=== PATIENT | female | born 1950 | race Caucasian/White ===

== ENCOUNTER 2024-10-13 16:45 | Outpatient (REF) | payer SELFPAY ==
--- OUTSIDE RECORDS SUMMARY | 2024-10-14 16:48 | XMS_ITS | Encounter Summary ---
Author Organization [facility] Address [address] [place] [address] Phone Care Team Providers Care Filters Assembler Name Role Phone Maranda Mesa MD Primary Care Provider +1- [phone] Encounter Details Date Type Department Care Team (Late st Contact Info) Description 07/22/2023 Documentation Only [facility] [place], [address] [place] [address] Mary Ingram [address] [place] [address] Social History Tobacco Use Types Packs/Day Years Used Date Smoking Tobacco: Never Assessed Comments Unknown Sex and Gender Information Value Date Recorded Sex Assigned at Not on file Legal Sex Female 4:32 PM EST Gender Identity Not on file Sexual Orientation Not on file documented as of this encounter Plan of Treatment Not on file documented as of this encounter Visit Diagnoses Not on filedocumented in this encounter Care Teams Filters Assembler Relationship Specialty Start Date End Date Maranda Mesa MD [address] [place] [address] PCP - General Family Medicine 03/03/23 documented as of this encounter
--- OUTSIDE RECORDS SUMMARY | 2024-10-14 16:48 | XMS_ITS | Encounter Summary ---
Author Organization [facility] Address [address] [place] [address] Phone Care Team Providers Care Manager Integrity Name Role Phone Maranda Mesa MD Primary Care Provider +1- [phone] Encounter Details Date Type Department Care Team (Late st Contact Info) Description 09/13/2024 Documentation Only [facility] [place], [address] [place] [address] Mary Ingram [address] [place] [address] Social History Tobacco Use Types [...] on filedocumented in this encounter Care Teams Manager Integrity Relationship Specialty Start Date End Date Maranda Mesa MD [address] [place] [address] PCP - General Family Medicine 03/03/23 documented as of this encounter
--- OUTSIDE RECORDS SUMMARY | 2024-10-14 16:48 | XMS_ITS | Encounter Summary ---
Author Organization [facility] Address [address] [place] [address] Phone Care Team Providers Care Client Relationship Manager Name Role Phone Maranda Mesa MD Primary Care Provider +1- [phone] Encounter Details Date Type Department Care Team (Late st Contact Info) Description 07/15/2023 Documentation Only [facility] [place], [address] [place] [address] Vanita Mayorga [address] [place] [address] Social History Tobacco Use Types [...] on filedocumented in this encounter Care Teams Client Relationship Manager Relationship Specialty Start Date End Date Maranda Mesa MD [address] [place] [address] PCP - General Family Medicine 03/03/23 documented as of this encounter
--- OUTSIDE RECORDS SUMMARY | 2024-10-14 16:48 | XMS_ITS | Encounter Summary ---
Author Organization [facility] Address [address] [place] [address] Phone Care Team Providers Care Mumps Developer Name Role Phone Maranda Mesa MD Primary Care Provider +1- [phone] Encounter Details Date Type Department Care Team (Late st Contact Info) Description 07/22/2023 Documentation Only [facility] [place], [address] [place] [address] Mary Ingram [address] [place] [address] Social History Tobacco Use Types [...] on filedocumented in this encounter Care Teams Mumps Developer Relationship Specialty Start Date End Date Maranda Mesa MD [address] [place] [address] PCP - General Family Medicine 03/03/23 documented as of this encounter
--- OUTSIDE RECORDS SUMMARY | 2024-10-14 16:48 | XMS_ITS | Encounter Summary ---
Author Organization [facility] Address [address] [place] [address] Phone Care Team Providers Care Single Corner Cutter Name Role Phone Maranda Mesa MD Primary Care Provider +1- [phone] Encounter Details Date Type Department Care Team (Late st Contact Info) Description 07/15/2023 Documentation Only [facility] [place], [address] [place] [address] Vanita Mayorga [address] [place] [address] Social History Tobacco Use Types [...] on filedocumented in this encounter Care Teams Single Corner Cutter Relationship Specialty Start Date End Date Maranda Mesa MD [address] [place] [address] PCP - General Family Medicine 03/03/23 documented as of this encounter
--- OUTSIDE RECORDS SUMMARY | 2024-10-14 16:48 | XMS_ITS | Clinical Summary ---
Author Organization [facility], Address [address] [address] Phone Care Team Providers Care Resource Paraprofessional Name Role Phone Maranda Mesa MD Primary Care Provider +1- [phone] Allergies Active Allergy Reactions Criticality Noted Date Comments Codeine Nausea,Other (see comments) Medium 04/11/2021 Other Reaction(s): Not available Diphenhydramine-Acetami nophen Medium 04/11/2021 Other Reaction(s): Hepatic reactions, Not available Escitalopram Medium 04/11/2021 Other Reaction(s): Cutaneous reactions, Not available Isosorbide Nitrate Medium 04/11/2021 Other Reaction(s): Nausea, Not available Lisinopril Other (see comments) 07/14/2023 Statins Medium 04/11/2021 Other Reaction(s): Nausea Sulfadiazine Rash Medium 04/11/2021 Other Reaction(s): Nausea Sulfamethoxazole-Trimet hoprim Rash Low 07/14/2023 Medications amLODIPine (NORVASC) 10 MG tablet Take 10 mg by mouth 1 (one) time each day Active Eliquis 5 MG tablet Take 5 mg by mouth in the morning and 5 mg in the evening. Active carvedilol (COREG) 12.5 MG tablet Take 12.5 mg by mouth 2 Active coenzyme Q-10 100 MG capsule Take 100 mg by mouth 2 Active Docusate Sodium (DSS) 100 MG capsule Take 100 mg by mouth 2 Active ezetimibe (ZETIA) 10 MG tablet Take 10 mg by mouth 1 (one) time each day 4 Active PROzac 20 MG capsule Take 20 mg by mouth 2 Active losartan (COZAAR) 25 MG tablet Take 25 mg by mouth 1 (one) time each day 4 Active pregabalin (LYRICA) 50 MG capsule TAKE 1 CAPSULE BY MOUTH UP TO THREE TIMES DAILY NEEDED FOR NERVE PAIN 4 Active rOPINIRole (REQUIP) 0.5 MG tablet Take 0.5 mg by mouth 1 (one) time each day Active nitroglycerin (NITROSTAT) 0.[address] 0.4 mg under the tongue 1 Active Empagliflozin (Jardiance) 10 MG tablet Take 10 mg by mouth 1 (one) time each day with breakfast 90 tablet 3 4 01/05/20 25 Active Continuous Glucose Sensor (FreeStyle Rios 2 Sensor) [facility] [place] AND CHANGE EVERY 14 DAYS 4 Active furosemide (LASIX) 20 MG tablet Take 20 mg by mouth in the morning and 20 mg in the evening. 4 Active Insulin Aspart FlexPen 100 UNIT/ML solution pen-injector 4 Active Basaglar KwikPen 100 UNIT/ML injection 4 Active Active Problems Problem Noted Date Diagnosed Date Hyperkalemia 07/14/2023 Essential hypertension 07/14/2023 Stage 3b chronic kidney disease 07/14/2023 Encounters Date Type Department Care Team Description 09/13/2024 Documentation Only [facility] [address] [place] [address] Mary Ingram 09/13/2024 Documentation Only [facility] [address] [place] [place] [address] Mary Ingram 07/21/2024 Refill [facility] [address] Sharyn ANTUNEZ [address] [place] [address] Gerson Dill MD from Last 3 Months Family History Medical History Relation Comments Heart disease Father ND Diabetes Mother Heart disease Mother ND Diabetes Sibling Brother Relation Status Comments Father Mother Sibling Social History Tobacco Use Types Packs/Day Years Used Date Smoking Tobacco: Never Assessed Comments Unknown Sex and Gender Information Value Date Recorded Sex Assigned at Not on file Legal Sex Female 4:32 PM EST Gender Identity Not on file Sexual Orientation Not on file Last Filed Vital Signs Vital Sign Reading Time Taken Comments Blood Pressure 125/62 04/26/2018 12:00 PM EDT Pulse 72 04/26/2018 12:00 PM EDT Temperature 36.7 C (98 F) 04/26/2018 12:00 PM EDT Respiratory Rate 14 04/26/2018 12:0 0 PM EDT Oxygen Saturation - - Inhaled Oxygen Concentration - - Weight 81.6 kg (179 lb 12.8 oz) 019 12:00 PM EDT Height 162.6 cm (5' 4 ) 04/26/2018 12:0 0 PM EDT Body Mass Index 30.86 04/26/2018 12:00 PM EDT Plan of Treatment Health Maintenance Due Date Last Done Comments Pneumococcal Vaccine: 50+ Ye ars (1 of 2 - PCV) 02/05/1969 Diabetes: Hemoglobin A1C 07/14/2023 Diabetes: Ophthalmology Exam 07/14/2023 Diabetes: Pedal Pulse Checked 07/14/2023 Diabetes: Sensory Foot Exam 07/14/2023 Diabetes: Visual Foot Exam 07/14/2023 Influenza Vaccine (#1) 2024 10/25/2022 Hepatitis B Vaccine Aged Out No longe r eligible based on patient's age to complete this topic Insurance Medicare [facility] Care Teams Resource Paraprofessional Relationship Specialty Start Date End Date Maranda Mesa MD [address] [place] [id number] PCP - General Family Medicine 03/03/23
--- OUTSIDE RECORDS SUMMARY | 2024-10-14 16:48 | XMS_ITS | Encounter Summary ---
Author Organization [facility] Address [address] [place] [address] Phone Care Team Providers Care Ore Digger Name Role Phone Maranda Mesa MD Primary Care Provider +1- [phone] Encounter Details Date Type Department Care Team (Late st Contact Info) Description 09/13/2024 Documentation Only [facility] [place], [address] [address] Mary Ingram [address] [place] [address] Social History Tobacco Use Types [...] on filedocumented in this encounter Care Teams Ore Digger Relationship Specialty Start Date End Date Maranda Mesa MD [address] [place] [address] PCP - General Family Medicine 03/03/23 documented as of this encounter
== END 2024-10-13 16:46 | disposition home or self-care (01) ==
LOC: HO.MMNH1L 16:45
DX: Z13.89 Encounter for screening for other disorder (principal)
CPT/HCPCS: 81003